=== PATIENT | male | born 1975 | race Caucasian/White ===

== ENCOUNTER 2019-06-09 15:48 | Observation (INO) | payer OTHER ==
[~2019-06-09] VITALS: Ht 167.6 cm; Wt 133.7 kg
[2019-06-09 15:54] VITALS: BP 204/123
[2019-06-09] MEDS ORDERED: CLONIDINE HCL0.2 M2 PO (15:58)
[2019-06-09] MEDS ORDERED: ATENOLOL 100MG100 MG PO (15:59)
[2019-06-09] MEDS ORDERED: LISINOPRIL2.5 MG PO (15:59)
[2019-06-09 16:31] LABS: ABSOLUTE BASOPHILS 0.1 thou/uL (0.0-0.2); ABSOLUTE EOSINOPHILS 0.2 thou/uL (0.0-0.7); ABSOLUTE NEUTROPHILS 6.6 thou/uL (1.6-8.1); BASOPHILS 1.3 %; EOSINOPHILS 2.2 %; HEMATOCRIT 47.3 % (42.0-52.0); LYMPHOCYTES 27.8 %; MCH 29.3 pg (26.0-34.0); MCHC 33.9 g/dL (28.0-37.0); MCV 86.5 fL (80.0-100.0); MONOCYTES 8.7 %; MPV 7.8 fl. (7.2-11.1); NUCLEATED RBCS 0 /100WBC; PLATELET COUNT* 227 thou/uL (150-400); RBC 5.46 mil/uL (4.50-6.00); RDW-CV 15.2 % (10.5-14.5)
[2019-06-09 16:42] LABS: CALCIUM 8.8 mg/dL (8.5-10.1); POTASSIUM 4.2 mmol/L (3.5-5.1)
[2019-06-09 16:44] LABS: APTT 26.3 Seconds (25.0-31.3); PROTIME 10.1 Seconds (9.20-11.50)
[2019-06-09 16:56] LABS: ALBUMIN 3.5 g/dL (3.4-5.0); CK-MB MASS 4.3 ng/mL (<0.5-3.6); TOTAL BILIRUBIN 0.3 mg/dL (<0.1-1.0); TOTAL PROTEIN 7.6 g/dL (6.4-8.2)
[2019-06-09 18:00] VITALS: BP 147/92
[2019-06-09] MEDS ORDERED: CLONIDINE HCL0.1 MG PO (18:48)
[2019-06-09 18:49] LABS: AMP/METHAMP Negative (Negative); BARBITURATES Negative (Negative); BENZODIAZEPINES Negative (Negative); COCAINE Negative (Negative); METHADONE Negative (Negative); OPIATES Negative (Negative); PCP Negative (Negative); THC Negative (Negative)
[2019-06-09 19:50] VITALS: BP 155/97
--- NOTE | 2019-06-09 19:54 | NUR ---
PT ARRIVED FROM ER AROUND 1800. ASSESSMENT COMPLETED CHARTED. ABLE TO MAKE NEEDS KNOWN. UP AD ADAMS. C/O CHRONIC BACK PAIN. SITTING UP IN CHAIR DUE TO SOA. WILL CONTINUE TO MONITOR.
[2019-06-10] VITALS: BP 155/76
--- NOTE | 2019-06-10 01:15 | NUR ---
RECEIVED REPORT AND ASSUMED CARE AT 1900. VSS. CARDIAC MONITORING IN PLACE. PT DENIES COMPLAINTS OF PAIN. ASSESSMENT COMPLETED CHARTED. PT UP AD ADAMS IN ROOM, ON RA. DISCUSSED PLAN OF CARE WITH PT, VERBALIZED UNDERSTANDING. BED LOCKED IN LOWEST POSITION, CALL LIGHT WITHIN REACH.
--- NOTE | 2019-06-10 01:34 | NUR ---
RECEIVED REPORT AND ASSUMED CARE AT 1900. VSS. CARDIAC MONITORING IN PLACE. PT REPORTS PAIN, PRN MEDICATION GIVEN PER EMAR. ASSESSMENT COMPLETED CAHRTED. PT UP AD ADAMS IN ROOM, ON RA. BED LOCKED IN LOWEST POSITION, CALL LIGHT WITHIN REACH, BED ALARM ON
--- NOTE | 2019-06-10 01:37 | NUR ---
RECEIVED REPORT AND ASSUMED CARE AT 1900. VSS. CARDIAC MONITORING IN PLACE. PT REPORTS PAIN, PRN MEDICATION PER EMAR. ASSESSMENT COMPLETED CHARTED. PT UP AD ADAMS IN ROOM, ON RA. BED LOCKED IN LOWEST POSITION, CALL LIGHT WITHIN REACH.
[2019-06-10 04:00] VITALS: BP 156/100
[2019-06-10 05:35] LABS: ANION GAP 10 mmol/L (7-16); BUN 19 mg/dL (7-18); CALCIUM 9.1 mg/dL (8.5-10.1); CHLORIDE 100 mmol/L (98-107); CO2 29 mmol/L (21-32); GLUCOSE 126 mg/dL (70-99); POTASSIUM 4.1 mmol/L (3.5-5.1); SODIUM 139 mmol/L (136-145)
[2019-06-10 06:12] LABS: CHOLESTEROL 160 mg/dL (<200); HDL CHOLESTEROL 48 mg/dL (>40); LDL CHOLESTEROL 100 mg/dL (<100); SERUM ASSESSMENT Clear; TC:HDL 3.3 Ratio (Not establshd); TRIGLYCERIDE 60 mg/dL (<150); VLDL 12 mg/dL (<40)
[2019-06-10] MEDS ORDERED: CLONIDINE HCL0.1 MG PO (09:16)
[2019-06-10] MEDS ORDERED: ATORVASTATIN CA20 MG PO (09:16)
[2019-06-10] MEDS ORDERED: ASA81BEC PO (09:16)
--- NOTE | 2019-06-10 11:30 | NUR ---
MET WITH PT TO DISCUSS HOME SITUATION/DC PLANNING. PT LIVES WITH SON AND DIL, HE WORKS AND IS INDEPENDENT AND ACTIVE. PT IS UNINSURED BUT STATES HIS INSURANCE AT HIS WORK WILL 'KICK IN ' SOON. GAVE COMMUNITY RESOURCES AND DISCUSSED SAFETY NET CLINICS AND GOOD RX. NOTARIZED DPOA AND PUT ON CHART, GAVE PT COPIES
[2019-06-10 11:59] VITALS: BP 135/77
[2019-06-10 12:04] VITALS: BP 135/77
--- NOTE | 2019-06-10 13:10 | NUR ---
ASSUMED PT CARE AT 0700, PT A&O X4, VSS, RA, DEVELOPMENT SPECIALIST TRACING SINUS RHYTHM, FULL ASSESSMENT CHARTED. PT DISCHARGED AT APPROX 1300 WITH DAUGHTER, EDUCATED ON ALL MEDICATIONS AND FOLLOW UP APPOINTMENTS. IV AND DEVELOPMENT SPECIALIST REMOVED, HOURLY ROUNDING COMPLETED.
--- NOTE | 2019-06-10 17:05 | EKG ---
[place] [address] ELECTROCARDIOGRAM REPORT Name: GRACIA MERINO [id number] Admission: 06/09/19 Attend Phys: Shaylee Jay Discharge: 06/10/19 Date of : 73 Report #: [id number] THIS REPORT FOR: //name// [facility] ED Test Date: 2019-06-09 Test Time: 16:06:21 Pat Name: GRACIA MERINO Department: Room: [facility] Gender: M Window Glazier Helper: : 1975 Requested By: Jose Caputo Order Number: [id number] MD: Nicholas Li Measurements Intervals [place] Rate: 68 P: 46 CO: 148 QRS: 56 QRSD: 101 T: 109 QT: 385 QTc: 410 Interpretive Statements Sinus rhythm Abnormal T, consider ischemia, lateral leads No previous ECG available for comparison Electronically Signed On 06-10-2019 17:04:47 RESERVATION AGENT by Nicholas Li [email or web address] <ELECTRONICALLY SIGNED> By: Nicholas Li MD, [facility] 06/10/19 1704 1606 05 Nicholas Li MD, [facility] /EPI
[2019-06-10 23:06] LABS: GLYCOHEMOGLOBIN (HGB A1C) 5.8 % (4.8-5.6)
--- NOTE | 2019-06-11 09:29 | EKG ---
[place] [address] ELECTROCARDIOGRAM REPORT Name: GRACIA MERINO Room: [address] MR.#: [id number] Admission: 06/09/19 Attend Phys: Shaylee Jay Discharge: 06/10/19 Date of : 73 Report #: [id number] THIS REPORT FOR: //name// [facility] Test Date: 2019-06-10 Test Time: 08:56:40 Pat Name: GRACIAPee DE LA PAZER Department: Room: [address] Gender: M Building Operator: MILLI : 1975 Requested By: Shaylee Desir Order Number: [id number] MD: Serge Landis Measurements Intervals [place] Rate: 79 P: 47 CT: 153 QRS: 59 QRSD: 96 T: 161 QT: 376 QTc: 432 Interpretive Statements Sinus rhythm LAE, consider biatrial enlargement Abnormal T, consider ischemia, lateral leads ST elevation, consider ischemia versus early repolarization No previous ECG available for comparison Electronically Signed On 06-11-2019 9:29:43 LITHOGRAPHIC ETCHER by Serge Landis [email or web address] <ELECTRONICALLY SIGNED> By: Serge Landis MD, FACC 06/11/19 0929 0856 Serge Landis MD, FAC /EPI
== END 2019-06-10 13:00 | disposition home or self-care (01) ==
LOC: M.ERS 15:48 → M.2W 16:47 → M.TBA-ER 16:47 → M.2W 17:56
PROVIDERS: Family Medicine; ADMIT Family Medicine
DX: I16.0 Hypertensive urgency (principal); R07.89 Other chest pain; J06.9 Acute upper respiratory infection, unspecified; G89.29 Other chronic pain; E78.5 Hyperlipidemia, unspecified; N20.0 Calculus of kidney; J44.1 Chronic obstructive pulmonary disease with (acute) exacerbation; E66.01 Morbid (severe) obesity due to excess calories; I10 Essential (primary) hypertension; M19.90 Unspecified osteoarthritis, unspecified site; F17.210 Nicotine dependence, cigarettes, uncomplicated; J96.00 Acute respiratory failure, unspecified whether with hypoxia or hypercapnia; F15.90 Other stimulant use, unspecified, uncomplicated; Z79.899 Other long term (current) drug therapy; Z68.42 Body mass index [BMI] 45.0-49.9, adult

== ENCOUNTER 2019-06-14 15:22 | Inpatient (IN) | payer OTHER ==
[~2019-06-14] VITALS: Ht 167.6 cm; Wt 133.8 kg
[~2019-06-14 15:22] MED LIST: ASA81BEC PO; ATENOLOL 100MG100 MG PO; ATORVASTATIN CA20 MG PO; CLONIDINE HCL0.1 MG PO; CLONIDINE HCL0.2 M2 PO; LISINOPRIL2.5 MG PO
[2019-06-14 15:25] VITALS: BP 207/117
[2019-06-14] MEDS ORDERED: ZESTRIL40 MG PO (16:09)
[2019-06-14 16:26] LABS: ABSOLUTE BASOPHILS 0.1 thou/uL (0.0-0.2); ABSOLUTE EOSINOPHILS 0.1 thou/uL (0.0-0.7); ABSOLUTE LYMPHOCYTES 0.9 thou/uL (0.8-5.3); ABSOLUTE MONOCYTES 0.7 thou/uL (0.0-1.2); ABSOLUTE NEUTROPHILS 6.4 thou/uL (1.6-8.1); BASOPHILS 0.8 %; EOSINOPHILS 0.6 %; HEMATOCRIT 49.6 % (42.0-52.0); HEMOGLOBIN 17.3 gm/dL (14.0-18.0); LYMPHOCYTES 11.5 %; MCH 29.7 pg (26.0-34.0); MCHC 34.9 g/dL (28.0-37.0); MCV 85.1 fL (80.0-100.0); MONOCYTES 8.2 %; MPV 7.6 fl. (7.2-11.1); NUCLEATED RBCS 0 /100WBC; PLATELET COUNT* 189 thou/uL (150-400); POLYS 78.9 %; RBC 5.83 mil/uL (4.50-6.00); WBC 8.2 thou/uL (4.0-11.0)
[2019-06-14 16:37] LABS: CALCIUM 8.9 mg/dL (8.5-10.1)
[2019-06-14 16:55] LABS: ALBUMIN 3.6 g/dL (3.4-5.0); TOTAL BILIRUBIN 0.6 mg/dL (<0.1-1.0); TOTAL PROTEIN 8.1 g/dL (6.4-8.2)
[2019-06-14 20:00] VITALS: BP 147/75
[2019-06-14 20:16] VITALS: BP 149/87
[2019-06-15] VITALS: BP 132/70
[2019-06-15 04:00] VITALS: BP 138/78
--- NOTE | 2019-06-15 05:39 | NUR ---
PT ADMITTED TO FLOOR AT 1950. MONITOR PLACED AND ASSESSMENTS COMPLETED AT BEDSIDE. PT HAS C/O PAIN THE LEFT FLANK/BACK D/T POSSIBLE KIDNEY STONES BUT HAS BEEN IMPROVING OVER THE PAST 24 HOURS. PAIN IS TOLERABLE WITH PRN MEDS. PT IS MAINTAINING SATS >90% ON 3L VIA NC. CURRENTLY ASLEEP IN BED WITH CALL LIGHT WITHIN REACH.
[2019-06-15 09:05] VITALS: BP 152/93
--- NOTE | 2019-06-15 09:05 | NUR ---
ASSUMED CARE AFTER REPORT APPROX 0730. A&OX4, ABLE TO COMMUNICATE NEEDS TO STAFF. ASSESSMENT COMPLETE, VS OBTAINED, WNL, O2 SATS 96% 2L NC. CIVIL DRAFTING TECHNICIAN IN PLACE, SR. CALL LIGHT WITHIN REACH. HOURLY ROUNDING FOR SAFETY/NEEDS.
--- NOTE | 2019-06-15 11:27 | EKG ---
[place] [address] ELECTROCARDIOGRAM REPORT Name: GRACIA MERINO Room: [address] ADM IN M.R.#: [id number] Admission: 06/14/19 Attend Phys: Danielle Benton MD Discharge: Date of : 73 Report #: [id number] THIS REPORT FOR: //name// [facility] ED Test Date: 2019-06-14 Test Time: 16:30:27 Pat Name: GRACIA MERINO Department: Room: [facility] Gender: M Assistant Shift Supervisor: : 1975 Requested By: Angeles Asencio Order Number: [id number] MD: Peewee Lake Measurements Intervals [place] Rate: 87 P: 51 NC: 149 QRS: 68 QRSD: 99 T: 116 QT: 334 QTc: 402 Interpretive Statements Sinus rhythm Probable left atrial enlargement Abnormal T, consider ischemia, lateral leads Baseline wander in lead(s) V3 Compared to ECG 06/10/2019 08:56:40 T-wave abnormality still present Possible ischemia still present Electronically Signed On 06-15-2019 11:27:34 LINUX DEVOPS ENGINEER by Peewee Lake [email or web address] <ELECTRONICALLY SIGNED> By: Peewee Lake MD, FACC 06/15/19 1127 1630 1630 Peewee Lake MD, FAC /EPI
[2019-06-15 12:00] VITALS: BP 148/90
[2019-06-15 16:00] VITALS: BP 134/59
[2019-06-15 20:00] VITALS: BP 150/76
[2019-06-15 21:14] LABS: URINE BILIRUBIN NEGATIVE (Negative); URINE BLOOD 1+ (Negative); URINE CLARITY CLEAR; URINE COLOR YELLOW; URINE GLUCOSE-RANDOM NEGATIVE (Negative); URINE KETONES NEGATIVE (Negative); URINE LEUKOCYTES-REFLEX NEGATIVE (Negative); URINE NITRITE-REFLEX NEGATIVE (Negative); URINE PROTEIN NEGATIVE (Negative); URINE SPECIFIC GRAVITY 1.015 (1.005-1.030); URINE UROBILINOGEN 0.2 E.U./dl (0.2-1.0)
[2019-06-15 21:20] LABS: AMP/METHAMP Negative (Negative); BARBITURATES Negative (Negative); BENZODIAZEPINES Negative (Negative); COCAINE Negative (Negative); METHADONE Negative (Negative); OPIATES Negative (Negative); PCP Negative (Negative); THC Negative (Negative)
[2019-06-15 21:39] LABS: CASTS None Seen /LPF (None Seen); SQUAMOUS NONE SEEN /LPF (0-3)
[2019-06-15 21:40] LABS: BACTERIA-REFLEX None Seen /HPF (None Seen); CRYSTALS None Seen /LPF (None Seen); URINE RBC 0-2 Rare /HPF (0-2); URINE WBC-REFLEX 0-5 Rare /HPF (0-5)
[2019-06-16] VITALS: BP 126/67
[2019-06-16 04:00] VITALS: BP 145/88
[2019-06-16 05:05] LABS: HEMATOCRIT 48.5 % (42.0-52.0); HEMOGLOBIN 16.1 gm/dL (14.0-18.0); MCHC 33.3 g/dL (28.0-37.0); MPV 7.7 fl. (7.2-11.1); RBC 5.57 mil/uL (4.50-6.00); RDW-CV 14.8 % (10.5-14.5); WBC 12.2 thou/uL (4.0-11.0)
[2019-06-16 05:25] LABS: CALCIUM 7.9 mg/dL (8.5-10.1); CREATININE 1.1 mg/dL (0.6-1.3); MAGNESIUM 2.2 mg/dL (1.8-2.4); POTASSIUM 4.8 mmol/L (3.5-5.1)
[2019-06-16 08:06] VITALS: BP 118/71
--- NOTE | 2019-06-16 09:40 | NUR ---
ASSUMED CARE OF PT THIS AM AROUND 0715- DISPUTE COORDINATOR IN PLACE ORDERED, TRACING SR- UPON ASSESSMENT PT NOTED TO BE RESTING IN BED, WATCHING TV- PT A&O X4- CONTINENT OF B/B- UP AD-ADAMS IN ROOM, STEADY GAIT NOTED- WHEEZING NOTED IN UPPER LOBES THIS AM, RESP EVEN AND UN-LABORED- VSS, O2 SAT 92% ON 2L VIA INC THIS AM- OR TITRATION IN PLACE, RT TO OBTAIN REST/EXERCISE THIS SHIFT FOR POSSIBLE D/C- ABD SOFT/OBESE/NON-TENDER, BS X 4 QUADS- PT REPORTS BM THIS AM- IV NOTED TO LEFT FA INTACT, IV ABT INFUSSING PRESCRIBED- GOOD PO INTAKE NOTED THIS SHIFT WITH MEALS- CHEST X-RAY PENDING THIS AM- CALL LIGHT AND PERSONAL BELONGINGS WITH IN REACH-PT MAKES NEEDS KNOWN- ALL NEEDS MET AT THIS TIME-WCTM
[2019-06-16] MEDS ORDERED: LEVAQUIN 500 M500 M3 PO (10:25)
[2019-06-16] MEDS ORDERED: PREDNISONE 10 M10 MG PO (10:25)
[2019-06-16] MEDS ORDERED: CATAPRES0.1 MG PO (10:25)
[2019-06-16] MEDS ORDERED: IPRAT-ALBUT 0.5-3 ML NEB (10:26)
[2019-06-16] MEDS ORDERED: NORCO 5-325 TA1 EAC1 PO ×2 (10:26→10:30)
--- NOTE | 2019-06-16 12:00 | CON ---
[address] [address] CONSULTATION Name: GRACIA MERINO Room: [address] IN .R.#: [id number] Admission: 06/14/19 Attend Phys: Danielle Benton MD Discharge: Date of : 73 Report #: [id number] THIS REPORT FOR: //name// CC: RAMIREZ physician/PCP Danielle Benton DATE OF SERVICE: 06/15/2019 CARDIOLOGY CONSULTATION HISTORY OF PRESENT ILLNESS: The patient is a 43-year-old male with labile hypertension present for some years. He has been on a combination of atenolol, clonidine, and lisinopril. He has been noncompliant with those medications and resumed them only to stop them with self-consent and development of a dyspnea. He was noted to be hypertensive and he was restarted on that confluence. At the present time, he is quite comfortable other than noting a mild cough associated with recent bronchitis. He has risk factors for coronary artery disease including cigarette smoking, hypercholesterolemia, and hypertension. There is also a history of moderate weight excess. SOCIAL HISTORY: He is and smokes a pack per day. REVIEW OF SYSTEMS: Remarkable for the following. RESPIRATORY: Occasional cough with a recent sputum production. CARDIOVASCULAR: He notes a dyspnea associated with uncontrolled hypertension. PHYSICAL EXAMINATION: GENERAL: Demonstrates a moderately overweight middle-aged male in no acute distress. VITAL SIGNS: Blood pressure is 150/95, pulse rate is 74, and respirations are 18 per minute. NECK: Jugular venous pressure is normal. CHEST: Clear. CARDIAC: Reveals normal first and second heart sounds without rubs, murmurs, or gallops. ABDOMEN: Moderately obese. EXTREMITIES: Without edema. IMPRESSION: 1. Uncontrolled hypertension. 2. Medication noncompliance. 3. [place] [address] CONSULTATION Name: GRACIA MERINO Room: [address]#: [id number] Admission: 06/14/19 Attend Phys: Danielle Benton MD Discharge: Date of : 73 Report #: [id number] 4. Weight excess. RECOMMENDATIONS: 1. Agree with reinstitution of beta-blockade, lisinopril, and clonidine. 2. Observe systemic pressure in the context of that therapy with a thought that he may require further modifications, however, at this point compliance is a critical issue. <ELECTRONICALLY SIGNED> By: Peewee Lake MD, FACC 06/16/19 1200 1115 1902Jofeliz Lake MD, FACC /nt
[2019-06-16 12:41] VITALS: BP 118/69
[2019-06-16 12:46] VITALS: BP 118/69
== END 2019-06-16 13:25 | disposition home or self-care (01) | DRG 189 ==
LOC: M.ERS 15:22 → M.TBA-ER 17:32 → M.2W 17:32
PROVIDERS: Nurse Practitioner Family; ADMIT Internal Medicine
DX: J96.01 Acute respiratory failure with hypoxia (principal); J44.1 Chronic obstructive pulmonary disease with (acute) exacerbation; Z68.42 Body mass index [BMI] 45.0-49.9, adult; I10 Essential (primary) hypertension; E78.5 Hyperlipidemia, unspecified; E66.9 Obesity, unspecified; I16.0 Hypertensive urgency; F17.210 Nicotine dependence, cigarettes, uncomplicated; G89.29 Other chronic pain; R10.9 Unspecified abdominal pain; I70.1 Atherosclerosis of renal artery; Z79.82 Long term (current) use of aspirin; Z91.14 Patient's other noncompliance with medication regimen; Z79.899 Other long term (current) drug therapy